=== PATIENT | female | born 1985 | race Caucasian/White ===

== ENCOUNTER 2019-10-01 06:15 | Inpatient (IN) | payer OTHER ==
[2019-10-01] MEDS ORDERED: LIDOCAINE 0.5% (PF) 5 MG/ML (50 ML SDV) SQ PRN (06:34)
[2019-10-01] MEDS ORDERED: CARBOPROST TROMETHAMINE 250 MCG/ML 1 ML AMP IM PRN (06:34)
[2019-10-01] MEDS ORDERED: OXYTOCIN 10 UNIT/ML 1 ML VIAL IM PRN (06:34)
[2019-10-01] MEDS ORDERED: TERBUTALINE 1 MG/ML VIAL SQ PRN (06:34)
[2019-10-01] MEDS ORDERED: METHYLERGONOVINE 0.2 MG/ML 1 ML AMP IM PRN (06:34)
[2019-10-01 06:50] LABS: Glucose,Whole Blood 98 mg/dL (75-99)
[2019-10-01 06:52] LABS: Anisocytosis Slight; Basophils % (A) 0 %; Eosinophils # (A) 0.1 k/uL (0-0.7); Eosinophils % (A) 2 %; HCT 38.3 % (34.0-46.0); HGB 12.4 gm/dL (11.4-16.0); Lymphocytes # (A) 1.2 k/uL (1.0-4.8); Lymphocytes % (A) 16 %; MCHC 32.3 g/dL (31.0-37.0); MCV 86.5 fL (80.0-100.0); Mean Platelet Volume 9.9; Monocytes # (A) 0.4 k/uL (0-1.0); Monocytes % (A) 6 %; Neutrophils # (A) 5.6 k/uL (1.3-7.7); Neutrophils % (A) 75 %; Platelet Count 128 k/uL (150-450); RBC 4.42 m/uL (3.80-5.40); RDW 17.2 % (11.5-15.5); WBC 7.4 k/uL (3.8-10.6)
[2019-10-01] MEDS: OXYTOCIN 30 UNITS/500 ML NS 30 UNIT in SALINE 1 500ML.BAG IV SCH (07:09)
[2019-10-01] MEDS: LACTATED RINGERS 1,000 ML IV SCH ×2 (07:15→11:32)
--- NOTE | 2019-10-01 07:23 | P.HPOB ---
History of Present Illness H&P Date: 10/01/19 Chief Complaint: Here for elective induction of labor This is a 34-year-old white female 1 para 0 EDC 10/02/2019 at 39-6/7 weeks' gestation. Patient presents today for elective induction of labor. She has a history of gestational diabetes, diet controlled. Blood sugar control has been very good. She is having rare irregular contractions spontaneously. She denies fluid leakage or vaginal bleeding. Past obstetric history significant for blood type A-, rubella status nonimmune. Group B strep cultures are negative. HIV testing, gonorrhea and chlamydia cultu res, urine culture negative. Three-hour GTT consistent with gestational diabetes. Hepatitis B surface antigen rapid covert test both negative. Social history patient is , she has never been a smoker, she denies alcohol or drug use. Family history significant for hypertension and diabetes. ALLERGIES include dogs and dust, no known medical ALLERGIES. Surgical history significant for right knee surgery, LEEP procedure of the cervix for CHRIS-3. Past medical history significant for hayfever. On exam this is a pleasant white female, 5 foot 1 inch, 165 pounds, blood pressure 139/76. General exam is within normal limits. Chest is clear in all cnao. Extremities reveal no edema. Cervix is 3 cm dilated, 80% effaced, -2 station, vertex presentation. Artificial amniorrhexis reveals clear fluid. heart rate is in the 130s consistent with reactive NST. Uterine contractions are occurring every 3-4 minutes apart of mild intensity. Impression: 39-6/7 weeks intrauterine , here for induction of labor. All signs reassuring. Plan: Oxytocin augmentation per hospital protocol. Continue close maternal and surveillance. Anticipate normal spontaneous vaginal delivery. Review of Systems Constitutional: Reports as per HPI Past Medical History Additional Past Medical History / Comment(s): Diet controlled gestational diabetes History of Any Multi-Drug Resistant Organisms: None Reported Additional Past Surgical History / Comment(s): Right meniscus tear Past Anesthesia/Blood Transfusion Reactions: No Reported Reaction Past Psychological History: No Psychological Hx Reported Smoking Status: Never smoker Past Alcohol Use History: None Reported Past Drug Use History: None Reported - Past Family History Mother Family Medical History: Hypertension Medications and Allergies Home Medications Medication Instructions Recorded Confirmed Type Pnv No.95/Ferrous Fum/Folic AC 1 tab PO DAILY 10/01/19 10/01/19 History [ Multivitamin Tablet] Allergies Allergy/AdvReac Type Severity Reaction Status Date / Time No Known Allergies Allergy Verified 10/01/19 06:25 Exam Vital Signs Temp Pulse Resp BP Pulse Ox 10/01/19 06:22 97.4 F L 93 16 139/76 100 Intake and Output 09/30/19 10/01/19 10/01/19 22:59 06:59 14:59 Other: Weight 74.843 kg see dictation per HPI please Results Result Diagrams: 10/01/19 06:40 Abnormal Lab Results - Last 24 Hours (Table) 10/01/19 Range/Units 06:40 RDW 17.2 H (11.5-15.5) % Plt Count 128 L (150-450) k/uL Assessment and Plan Assessment: 39-6/7 weeks intrauterine , here for induction of labor. All signs reassuring. Gestational diabetes, admitting blood sugar 98. Plan: Continue close maternal and surveillance. Analgesic options have been reviewed. Anticipate normal spontaneous vaginal delivery. Time with Patient: Less than 30
[2019-10-01] MEDS ORDERED: diphenhydrAMINE ELIXIR 25 MG/10 ML CUP PO PRN (15:21)
[2019-10-01] MEDS ORDERED: diphenhydrAMINE 25 MG CAP PO PRN (15:21)
[2019-10-01] MEDS ORDERED: ZOLPIDEM 5 MG TAB PO PRN (15:21)
[2019-10-01] MEDS ORDERED: diphenhydrAMINE 50 MG/ML 1 ML VIAL IVP PRN ×2 (15:21)
[2019-10-01] MEDS ORDERED: SIMETHICONE 80 MG CHEWABLE PO PRN (15:21)
[2019-10-01] MEDS ORDERED: diphenhydrAMINE 50 MG CAP PO PRN (15:21)
[2019-10-01] MEDS ORDERED: WITCH HAZEL 1 EACH MED..PAD TOPICAL PRN (15:21)
[2019-10-01] MEDS ORDERED: LANOLIN CREAM 5 GM TUBE TOPICAL PRN (15:21)
[2019-10-01] MEDS ORDERED: BENZOCAINE/MENTHOL SPRAY 1 GM/SPRAY AEROSOL TOPICAL PRN (15:21)
[2019-10-01] MEDS ORDERED: HYDROCORTISONE 2.5% RECTAL CREAM 30 GM TUBE RECTAL PRN (15:21)
--- NOTE | 2019-10-01 15:21 | P.PROBDLV ---
Vaginal Delivery Note - . Vaginal Delivery Note: This is a 34-year-old white female 1 para 0 EDC 10/02/2019 at 39-6/7 weeks' gestation. Patient presented for induction with favorable cervix. remarkable for gestational diabetes, well controlled via diet. She also has a history of a LEEP procedure in the past. Rubella status nonimmune. Rupee strep cultures negative. Blood type A-. Please see dictated history and physical for details. Artificial amniorrhexis revealed clear fluid. Oxytocin was started and titrated per hospital protocol. Epidural was placed per her request. Patient progressed well through the first stage of labor, heart rate was reassuring throughout the first and second stage. She became completely dilated and began the second stage of labor at that time. Perineal body was prepped and draped in usual sterile fashion. With excellent maternal expulsive efforts the infant's head crowned occiput anterior. He restituted accordingly. Was a nuchal cord 1 that was tight, and reduced on the perineal body. The right or anterior shoulder was then delivered from underneath the pubic symphysis at which time the oropharynx, nasopharynx, and external nares were bulb suctioned. Patient was officially delivered of a liveborn male at 1459 hours. Umbilical cord was doubly clamped and ligated, he was handed to waiting nurses for evaluation where scores of 8 and 9 at one and 5 minutes respectively were given. The placenta delivered spontaneously with active management. It was inspected and noted to be intact with trivascular cord at 05/19/2003 hours. At this time the perineal body was carefully inspected. The cervix, vagina, perineal, per iurethral, and perirectal areas were all noted. There was a small first-degree perineal laceration at 6:00 repaired with 1% lidocaine and 3-0 repeat suture. In addition was a small left labial laceration also repaired. Fundus is firm and in the midline, symmetric and 18 week size. All sponge needle and enhancement counts are correct at the end of the procedure. Total estimated blood loss 250 mL's. weighed 6 lbs. 9 oz. or 2985 g. Patient is requesting circumcision for her son.
[2019-10-01] MEDS ORDERED: OXYTOCIN 20 UNITS/1000 ML NS 1,000 ML IV SCH (15:30)
[2019-10-01] MEDS: IBUPROFEN 600 MG TAB PO PRN (16:26)
[2019-10-01] MEDS: ACETAMINOPHEN TAB 325 MG TAB PO PRN (19:57)
[2019-10-01] MEDS: SENNOSIDES-DOCUSATE SODIUM 1 EACH TAB PO SCH (19:57)
[2019-10-01] MEDS ORDERED: Rhogam IMMUNE GLOBULIN 1,500 UNIT/1 ML IM ONE (22:07)
[2019-10-02] MEDS: IBUPROFEN 600 MG TAB PO PRN ×4 (00:54→22:21)
--- NOTE | 2019-10-02 07:58 | P.DS ---
Providers Date of admission: 10/01/19 06:15 Expected date of discharge: 10/02/19 Attending physician: Margo Gómez Primary care physician: Stated None Hospital Course: This is a 34-year-old white female 1 para 0 EDC 10/02/2019 at 39-6/7 weeks' gestation. Patient presented for induction with favorable cervix, gestational diabetes diet controlled. Blood sugar on admission 98. is also remarkable for negative group B strep cultures, blood type A-, rubella status nonimmune. Please see my dictated history and physical for details. Artificial amniorrhexis revealed clear fluid. Oxytocin was started and titrated per hospital protocol. Epidural was placed per her request. She went on to deliver a liveborn male with scores of 8 and 9 at one and 5 minutes respectively. There was a nuchal cord 1 that was reduced, and a small first- degree perineal laceration. weighed 6 lbs. 9 oz. or 2985 g. Estimated blood loss recorded at 250. Please see dictated delivery note for details. This morning the patient is doing well. She is voiding, ambulating and passing flatus without difficulty. Vital signs are stable and she is afebrile. Breasts are symmetric and not engorged. Fundus is firm and in the midline, symmetric and 18 week size. Extremities are negative for edema. Chest is clear in all cano. [place] infant is doing well, circumcision has been performed. Patient is judged to be in very good condition for discharge home. She will follow-up with me in the office in 6 weeks. I have reminded her no intercourse, tampons or douching. She will use [id number] products, Advil or Motrin or Aleve as needed for pain. Continue vitamins daily. Increase oral fluids. Call with any fevers shakes or chills, foul smelling or copious lochia, with the passage of large blood clots, with any pain not alleviated by [id number] products, or indeed with any concerns. Assessment: Doing well day #1 Patient Condition at Discharge: Good Plan - Discharge Summary Discharge Rx Participant: No New Discharge Prescriptions: No Action Pnv No.95/Ferrous Fum/Folic AC [ Multivitamin Tablet] 1 tab PO DAILY Discharge Medication List Pnv No.95/Ferrous Fum/Folic AC [ Multivitamin Tablet] 1 tab PO DAILY [History] Follow up Appointment(s)/Referral(s): Margo Gómez MD [STAFF PHYSICIAN] - 6 Weeks Discharge Disposition: HOME SELF-CARE
[2019-10-02] MEDS: SENNOSIDES-DOCUSATE SODIUM 1 EACH TAB PO SCH ×2 (08:00→20:14)
[2019-10-02] MEDS: LACTATED RINGERS 1,000 ML IV SCH ×2 (18:01→18:02)
[2019-10-02] MEDS: OXYTOCIN 30 UNITS/500 ML NS 30 UNIT in SALINE 1 500ML.BAG IV SCH (18:02)
[2019-10-03] MEDS: IBUPROFEN 600 MG TAB PO PRN ×2 (08:22→19:46)
[2019-10-03 09:40] VITALS: RESP 18
[2019-10-03] MEDS: OXYTOCIN 30 UNITS/500 ML NS 30 UNIT in SALINE 1 500ML.BAG IV SCH (09:43)
[2019-10-03] MEDS: LACTATED RINGERS 1,000 ML IV SCH (09:43)
[2019-10-03] MEDS: SENNOSIDES-DOCUSATE SODIUM 1 EACH TAB PO SCH ×2 (09:44→21:09)
[2019-10-03 16:59] VITALS: BP 127/84; PULSE 80; TEMP 98.9
[2019-10-03] MEDS: ACETAMINOPHEN TAB 325 MG TAB PO PRN (21:08)
== END 2019-10-03 21:22 | disposition home or self-care (01) | DRG 807 ==
LOC: 4FBP 06:15 → MERGE 10-02 11:21
PROVIDERS: ADMIT Obstetrics & Gynecology; ATTEND Obstetrics & Gynecology
PROC: 0HQ9XZZ Repair Perineum Skin, External Approach (ICD-10-PCS; principal; 2019-10-01)
PROC: 3E033VJ Introduction of Other Hormone into Peripheral Vein, Percutaneous Approach (ICD-10-PCS; principal; 2019-10-01)
PROC: 00HU33Z Insertion of Infusion Device into Spinal Canal, Percutaneous Approach (ICD-10-PCS; principal; 2019-10-01)
PROC: 3E0R3BZ Introduction of Anesthetic Agent into Spinal Canal, Percutaneous Approach (ICD-10-PCS; principal; 2019-10-01)
PROC: 10E0XZZ Delivery of Products of Conception, External Approach (ICD-10-PCS; principal; 2019-10-01)
PROC: 10907ZC Drainage of Amniotic Fluid, Therapeutic from Products of Conception, Via Natural or Artificial Opening (ICD-10-PCS; principal; 2019-10-01)
DX: O24.420 Gestational diabetes mellitus in childbirth, diet controlled (principal); Z37.0 Single live birth; O69.81X0 Labor and delivery complicated by cord around neck, without compression, not applicable or unspecified; O70.0 First degree perineal laceration during delivery; Z3A.39 39 weeks gestation of pregnancy; Z82.49 Family history of ischemic heart disease and other diseases of the circulatory system; Z83.3 Family history of diabetes mellitus; Z11.59 Encounter for screening for other viral diseases
CPT/HCPCS: 85025; 85461; 86850; 86900; 86901; 87635